=== PATIENT | male | born 1945 | race Caucasian/White ===

== ENCOUNTER 2017-01-25 07:53 | Day surgery (SDC) | payer MEDICARE, BC ==
[~2017-01-25 07:53] MED LIST: Lactated Ringers 1,000 ML IV SCH; Lidocaine 1%/Sod Bicarbonate in NS 8.4% 1 ML Syringe IV PRN; Sodium Chloride 0.9% 10 ML Syringe FLUSH PRN
--- NOTE | 2017-01-25 08:19 | PCM.PREANE ---
Preanesthetic Assessment - Anesthesia/Transfusion/Family Hx Anesthesia History: Prior Anesthesia Without Reaction Family History of Anesthesia Reaction: No Transfusion History: No Prior Transfusion(s) - Review of Systems General: No Symptoms Pulmonary: No Symptoms Cardiovascular: No Symptoms Gastrointestinal: No symptoms Neurological: No Symptoms Other: Reports: None - Physical Assessment NPO Status Date: 01/24/17 NPO Status Time: 22:30 Pulse: 79 O2 Sat by Pulse Oximetry: 96 Respiratory Rate: 20 Blood Pressure: 164/82 Temperature: 97.8 F Height: 5 ft 11 in Weight: 104 kg ASA Class: 2 Mental Status: Alert & Oriented x3 Airway Class: Mallampati = 3 Dentition: Reports: Normal Dentition Thyro-Mental Finger Breadths: 3 Mouth Opening Finger Breadths: 3 ROM/Head Extension: Full Lungs: Clear to auscultation, Normal respiratory effort Cardiovascular: Regular Rhythm, Irregular Rhythm - Imaging/EKG Impressions: 01/25/17 EKG reviewed by Husam Davis after read by DrWai 2 EKGs compared. - Allergies Allergies/Adverse Reactions: Allergies Allergy/AdvReac Type Severity Reaction Status Date / Time No Known Allergies Allergy Verified 01/25/17 08:36 - Blood Blood Available: No - Anesthesia Plan Pre-Op Medication Ordered: None - Acknowledgements Anesthesia Type Planned: MAC Pt an Appropriate Candidate for the Planned Anesthesia: Yes Alternatives and Risks of Anesthesia Discussed w Pt/Guardian: Yes Pt/Guardian Understands and Agrees with Anesthesia Plan: Yes PreAnesthesia Questionnaire HEENT History: Reports: Cataract Other HEENT History: ALLERGIC RHINITIS Cardiovascular History: Reports: Hypertension Other Cardiovascular History: HYPERLIPIDEMIA Respiratory History: Reports: Sleep apnea Gastrointestinal History: Reports: Diverticulosis, GERD Other Gastrointestinal History: Patient has never had a colonoscopy Other Genitourinary History: vasectomy Other Musculoskeletal History: NECK SURGERY Other Neuro History: Top of head pain nd dizziness with sinus Other Dermatologic History: LIPOMA - Past Surgical History HEENT Surgical History: Reports: Cataract surgery GI Surgical History: Reports: Colostomy Other GI Surgeries/Procedures: colostomy with reversal Other Musculoskeletal Surgeries/Procedures:: neck surgery with metal plates Dermatological Surgical History: Reports: Other (see below) (groin fatty area removed) - SUBSTANCE USE Smoking Status *Q: Former Smoker (quit 19 year ago) Tobacco Use Within Last Twelve Months: No Other Tobacco Use Within Last Twelve Months: quit 19 years ago Second Hand Smoke Exposure: No Days Per Week of Alcohol Use: 7 Number of Drinks Per Day: 2 Total Drinks Per Week: 14 Recreational Drug Use History: No - HOME MEDS Home Medications: Home Meds Lutein/Minerals/Vit A,C & E [Ocuvite] 1 tab PO DAILY 10/26/15 [History] Losartan/Hydrochlorothiazide [Losartan-HCTZ 50-12.5 MG] 50 mg PO DAILY 01/24/17 [History] Multivitamin [Multivitamins] 1 tab PO DAILY 01/24/17 [History] - CURRENT (IN HOUSE) MEDS Current Meds: Current Medications Lactated Ringer's (Ringers, Lactated) 1,000 mls @ 125 mls/hr IV ASDIRECTED MAYUR Stop: 01/25/17 23:00 Lidocaine/Sodium Bicarbonate (Buffered Lidocaine 1% In Ns 8.4%) 0.25 ml IV ONETIME PRN PRN Reason: Prior to IV Start Stop: 01/25/17 18:00 Sodium Chloride (Saline Flush) 10 ml FLUSH ASDIRECTED PRN PRN Reason: Keep Vein Open Stop: 01/25/17 18:00
[2017-01-25] MEDS ORDERED: fentaNYL 100 MCG/2 ML SDV ONE (09:12)
[2017-01-25] MEDS ORDERED: Propofol 200 MG/20 ML SDV ONE ×2 (09:12→10:49)
[2017-01-25] MEDS ORDERED: Lidocaine 1% 4 ML ONE (09:13)
[2017-01-25] MEDS ORDERED: Labetalol 100 MG/20 ML MDV ONE (10:35)
--- NOTE | 2017-01-25 10:49 | PCM.OPNOTE ---
- General Post-Op/Procedure Note Date of Surgery/Procedure: 01/25/17 Operative Procedure(s): colonoscopy with sigmid polypectomy Findings: 1. 1 cm sigmoid polyp pedunculated 2. sigmoid diverticulum 3. internal hemorrhoids Pre Op Diagnosis: history of rectal bleeding Post-Op Diagnosis: 1. 1 cm sigmoid polyp pedunculated. 2. sigmoid diverticulum. 3. internal hemorrhoids Anesthesia Technique: MAC, Moderate sedation Primary Surgeon: Lawrence Escobedo Pathology: sigmoid polyp Complications: None Condition: Good Free Text/Narrative:: After adequate IV sedation and analgesia was obtained. The patient was placed in the left lateral decubitus position for the procedure. Perianal inspection was unremarkable. Digital rectal examination revealed an unremarkable prostate. A lubricated colonoscope was inserted into the rectum and passed to the cecum without difficulty. The bowel preparation was excellent. The cecum, right colon , transverse, and descending colons were endoscopically normal with no mass lesions or inflammatory changes seen. There was a single diverticulum in the sigmoid. In the distal sigmoid there was a 1 cm, pedunculated polyp, which was removed with hot snare cautery. The specimen was retrieved. The base was cauterized. In the retroflexed view there were the 3 column hemorrhoids, which were nonbleeding. Air was removed, as I finished the procedure, which he tolerated well. Slubber Hand photographs taken for the patient and for the record.
--- NOTE | 2017-01-25 11:19 | PCM48HPAN ---
Post Anesthesia Note - EVALUATION WITHIN 48HRS OF ANESTHETIC Vital Signs in Normal Range: Yes Patient Participated in Evaluation: Yes Respiratory Function Stable: Yes Airway Patent: Yes Cardiovascular Function Stable: Yes Hydration Status Stable: Yes Pain Control Satisfactory: Yes Nausea and Vomiting Control Satisfactory: Yes Mental Status Recovered: Yes - COMMENTS/OBSERVATIONS Free Text/Narrative:: no anesthetic complications noted
[2017-01-25 17:51] VITALS: BP 164/82
== END 2017-01-25 11:22 | disposition home or self-care (01) ==
LOC: JD.SDS 07:53
PROVIDERS: ATTEND Surgery
PROC: 0DBN8ZX Excision of Sigmoid Colon, Via Natural or Artificial Opening Endoscopic, Diagnostic (ICD-10-PCS; principal; 2017-01-25)
DX: Z12.11 Encounter for screening for malignant neoplasm of colon (principal); D12.5 Benign neoplasm of sigmoid colon; K57.30 Diverticulosis of large intestine without perforation or abscess without bleeding; K64.8 Other hemorrhoids; M19.90 Unspecified osteoarthritis, unspecified site; I10 Essential (primary) hypertension; K21.9 Gastro-esophageal reflux disease without esophagitis; M54.10 Radiculopathy, site unspecified; I87.8 Other specified disorders of veins; Z79.899 Other long term (current) drug therapy; Z87.891 Personal history of nicotine dependence
CPT/HCPCS: 45385; 88305; 93005; J3010; J7120; 00810; J2704

== ENCOUNTER → 2017-01-27 | Day surgery (SDC) | payer MEDICARE, BC ==
[~2017-01-27] MED LIST changes: +Labetalol 100 MG/20 ML MDV ONE; +Lidocaine 1% 6 ML ONE; +Midazolam 1 MG/ML 2 ML SDV ONE; +Ondansetron 4 MG/2 ML SDV IVPUSH PRN; +Propofol 200 MG/20 ML SDV ONE; +fentaNYL 100 MCG/2 ML SDV IVPUSH PRN; +fentaNYL 100 MCG/2 ML SDV ONE
--- NOTE | 2017-01-27 09:22 | PCM.PREANE ---
Preanesthetic Assessment - Anesthesia/Transfusion/Family Hx Anesthesia History: Prior Anesthesia Without Reaction Family History of Anesthesia Reaction: No Transfusion History: No Prior Transfusion(s) Intubation History: Unknown - Review of Systems Pulmonary: No Symptoms (quit smoking 19 years ago./ History of JOHANNE and does not use his CPAP) Cardiovascular: No Symptoms Gastrointestinal: No symptoms (gerd history) Neurological: No Symptoms (History of vertigo), Tingling (right hand tingling noted due to c spine surgery.) Other: Reports: None, Sinus Problem (runny nose due to recent cold.) - Physical Assessment NPO Status Date: 01/26/17 NPO Status Time: 22:00 Pulse: 87 O2 Sat by Pulse Oximetry: 95 Respiratory Rate: 18 Blood Pressure: 155/73 Temperature: 36.4 C Vital Signs: Last Vital Signs Temp 36.4 C 01/27/17 08:45 Pulse 87 01/27/17 08:45 Resp 18 01/27/17 08:45 BP 155/73 H 01/27/17 08:45 Pulse Ox 95 01/27/17 08:45 Height: 1.8 m Weight: 106.141 kg ASA Class: 2 Mental Status: Alert & Oriented x3 Airway Class: Mallampati = 2 Dentition: Reports: Normal Dentition, [place](s), Caries Thyro-Mental Finger Breadths: 3 Mouth Opening Finger Breadths: 3 ROM/Head Extension: Full Lungs: Clear to auscultation, Normal respiratory effort Cardiovascular: Regular Rate, Regular Rhythm - Lab Values: Labs of 01/03/17 reviewed and noted with values within normal range except BUN, and Cr. - Imaging/EKG Impressions: EKG: SR= 69, PAC's noted, Prolonged QT interval noted, abnormal Rwave progression, No changes noted when compared to prior EKG. - Allergies Allergies/Adverse Reactions: Allergies Allergy/AdvReac Type Severity Reaction Status Date / Time No Known Allergies Allergy Verified 01/27/17 09:01 - Anesthesia Plan Pre-Op Medication Ordered: None - Acknowledgements Anesthesia Type Planned: MAC Pt an Appropriate Candidate for the Planned Anesthesia: Yes Alternatives and Risks of Anesthesia Discussed w Pt/Guardian: Yes Pt/Guardian Understands and Agrees with Anesthesia Plan: Yes PreAnesthesia Questionnaire HEENT History: Reports: Allergic rhinitis, Cataract Other HEENT History: impacted cerumen, cataract Cardiovascular History: Reports: High cholesterol, Hypertension Other Cardiovascular History: venous stasis of lower extremity Respiratory History: Reports: Sleep apnea Other Respiratory History: CPAP at bedtime Gastrointestinal History: Reports: Diverticulosis, GERD, Hemorrhoids Other Gastrointestinal History: nausea/vomiting Other Genitourinary History: vasectomy 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 Musculoskeletal History: Reports: Arthritis Other Musculoskeletal History: radiculopathy of leg Other Neuro History: dizziness Psychiatric History: Reports: None Endocrine/Metabolic History: Reports: None Hematologic History: Reports: None Immunologic History: Reports: None Oncologic (Cancer) History: Reports: None Other Dermatologic History: eczema, lipoma - Past Surgical History Head Surgeries/Procedures: Reports: None HEENT Surgical History: Reports: Cataract surgery GI Surgical History: Reports: Colonoscopy, Colostomy, Other (see below) Other GI Surgeries/Procedures: sigmoid resection, expolratory laparotomy for bowel obstruction due to adhesions Male Surgical History: Reports: Vasectomy Other Musculoskeletal Surgeries/Procedures:: neck surgery with metal plates - SUBSTANCE USE Smoking Status *Q: Never Smoker Tobacco Use Within Last Twelve Months: No Other Tobacco Use Within Last Twelve Months: quit 19 years ago Second Hand Smoke Exposure: No Days Per Week of Alcohol Use: 7 Number of Drinks Per Day: 2 Total Drinks Per Week: 14 Recreational Drug Use History: No - HOME MEDS Home Medications: Home Meds Lutein/Minerals/Vit A,C & E [Ocuvite] 1 tab PO DAILY 10/26/15 [History] Losartan/Hydrochlorothiazide [Losartan-HCTZ 50-12.5 MG] 50 mg PO DAILY 01/24/17 [History] Multivitamin [Multivitamins] 1 tab PO DAILY 01/24/17 [History] - CURRENT (IN HOUSE) MEDS Current Meds: Current Medications Lactated Ringer's (Ringers, Lactated) 1,000 mls @ 125 mls/hr IV ASDIRECTED MAYUR Last Admin: 01/27/17 08:30 Dose: 125 mls/hr Lidocaine/Sodium Bicarbonate (Buffered Lidocaine 1% In Ns 8.4%) 0.25 ml IV ONETIME PRN PRN Reason: Prior to IV Start Last Admin: 01/27/17 08:29 Dose: 0.25 ml Sodium Chloride (Saline Flush) 10 ml FLUSH ASDIRECTED PRN PRN Reason: Keep Vein Open
--- NOTE | 2017-01-27 10:51 | PCM.OPNOTE ---
- General Post-Op/Procedure Note Date of Surgery/Procedure: 01/27/17 Operative Procedure(s): 3 column internal hemorrhoid banding Findings: 3 column internal hemorrhoids Pre Op Diagnosis: rectal bleeding from 3 column grade 2 hemorrhoids Post-Op Diagnosis: same Anesthesia Technique: MAC, Moderate sedation Primary Surgeon: Lawrence Escobedo Pathology: none EBL in mLs: 0 Complications: None Condition: Good Free Text/Narrative:: After adequate IV sedation and analgesia the patient was placed in the prone jackknife position with his buttocks taped. The perianal region was prepped with Betadine. The field was draped sterilely. An anal retractor was inserted into the anal canal after digitalization, exposing the left lateral column. Two rubber bands were fired in the rectal mucosa above the dentate line above the hemorrhoidal column. The right anterior and right posterior columns were managed in a similar fashion. The patient tolerated the procedure well and there were no complications.
--- NOTE | 2017-01-27 11:03 | PCM48HPAN ---
Post Anesthesia Note - EVALUATION WITHIN 48HRS OF ANESTHETIC Vital Signs in Normal Range: Yes Patient Participated in Evaluation: Yes Respiratory Function Stable: Yes Airway Patent: Yes Cardiovascular Function Stable: Yes Hydration Status Stable: Yes Pain Control Satisfactory: Yes Nausea and Vomiting Control Satisfactory: Yes Mental Status Recovered: Yes - COMMENTS/OBSERVATIONS Free Text/Narrative:: Patient awake, conversing and joking with staff. No c/o noted by patient, tolerated procedure well.
--- NOTE | 2017-01-27 11:31 | PCM48HPAN ---
Post Anesthesia Note - EVALUATION WITHIN 48HRS OF ANESTHETIC Vital Signs in Normal Range: Yes Patient Participated in Evaluation: Yes Respiratory Function Stable: Yes Airway Patent: Yes Cardiovascular Function Stable: Yes Hydration Status Stable: Yes Pain Control Satisfactory: Yes Nausea and Vomiting Control Satisfactory: Yes Mental Status Recovered: Yes - COMMENTS/OBSERVATIONS Free Text/Narrative:: Patient continues to deny any c/o chest pain, dizziness, or any complaints at this time. SPo2 monitor showed discrepancy with heart rate, and with noted unifocal PVC's noted during procedure, repeat EKG done. Repeat EKG reveals no changes from 01/26/17
[2017-01-27 11:56] VITALS: BP 143/72
== END | disposition home or self-care (01) ==
LOC: JD.SDS 08:24
PROVIDERS: ATTEND Surgery
PROC: 06BY0ZC Excision of Hemorrhoidal Plexus, Open Approach (ICD-10-PCS; principal; 2017-01-27)
DX: K64.1 Second degree hemorrhoids (principal)
CPT/HCPCS: 46221; 93005; J2250; J3010; J7120; 00902; J2704

== ENCOUNTER 2018-02-21 11:10 | Day surgery (SDC) | payer MEDICARE, BC ==
[~2018-02-21 11:10] MED LIST changes: -Labetalol 100 MG/20 ML MDV ONE; -Lidocaine 1% 6 ML ONE; +Lidocaine 1%/Sod Bicarbonate in NS 8.4% 1 ML Syringe IDERM PRN; -Lidocaine 1%/Sod Bicarbonate in NS 8.4% 1 ML Syringe IV PRN; -Midazolam 1 MG/ML 2 ML SDV ONE; -Ondansetron 4 MG/2 ML SDV IVPUSH PRN; -Propofol 200 MG/20 ML SDV ONE; -fentaNYL 100 MCG/2 ML SDV IVPUSH PRN; -fentaNYL 100 MCG/2 ML SDV ONE
[2018-02-21] MEDS ORDERED: Lidocaine 1% 4 ML ONE (11:48)
[2018-02-21] MEDS ORDERED: fentaNYL 100 MCG/2 ML SDV ONE (11:48)
[2018-02-21] MEDS ORDERED: Propofol 200 MG/20 ML SDV ONE (11:48)
--- NOTE | 2018-02-21 11:53 | PCM.PREANE ---
Preanesthetic Assessment - Anesthesia/Transfusion/Family Hx Anesthesia History: Prior Anesthesia Without Reaction Family History of Anesthesia Reaction: No Transfusion History: No Prior Transfusion(s) Intubation History: Unknown - Review of Systems General: No Symptoms Pulmonary: No Symptoms Cardiovascular: No Symptoms Gastrointestinal: No Symptoms Neurological: No Symptoms - Physical Assessment NPO Status Date: 02/20/18 NPO Status Time: 00:00 Pulse: 61 O2 Sat by Pulse Oximetry: 96 Respiratory Rate: 16 Blood Pressure: 140/69 Temperature: 36.4 C Vital Signs: Last Vital Signs Temp 36.4 C 02/21/18 11:15 Pulse 61 02/21/18 11:15 Resp 16 02/21/18 11:15 BP 140/69 02/21/18 11:15 Pulse Ox 96 02/21/18 11:15 Height: 1.78 m Weight: 101.7 kg ASA Class: 2 Mental Status: Alert & Oriented x3 Dentition: Reports: Missing Tooth/Teeth, Caries Thyro-Mental Finger Breadths: 2 Mouth Opening Finger Breadths: 2 ROM/Head Extension: Limited/Partial Lungs: Clear to Auscultation, Normal Respiratory Effort Cardiovascular: Regular Rate, Regular Rhythm - Allergies Allergies/Adverse Reactions: Allergies Allergy/AdvReac Type Severity Reaction Status Date / Time No Known Allergies Allergy Verified 02/20/18 14:28 - Blood Blood Available: No Product(s) Available: None - Anesthesia Plan Pre-Op Medication Ordered: Beta Steph Beta Steph: Metoprolol Med Last Dose Date: 02/21/18 Med Last Dose Time: 09:00 - Acknowledgements Anesthesia Type Planned: MAC Pt an Appropriate Candidate for the Planned Anesthesia: Yes Alternatives and Risks of Anesthesia Discussed w Pt/Guardian: Yes Pt/Guardian Understands and Agrees with Anesthesia Plan: Yes PreAnesthesia Questionnaire HEENT History: Reports: Allergic Rhinitis, Cataract Other HEENT History: impacted cerumen Cardiovascular History: Reports: High Cholesterol, Hypertension Other Cardiovascular History: claudication, peripheral edema, venous stasis Respiratory History: Reports: Sleep Apnea Other Respiratory History: CPAP at bedtime Gastrointestinal History: Reports: Diverticulosis, GERD, Hemorrhoids, Other ( See Below) Other Gastrointestinal History: dysphagia, intestional obstruction, nausea, vomiting Genitourinary History: Reports: Other (See Below) Other Genitourinary History: CKD III, renal artery stenosis 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 Musculoskeletal History: Reports: Arthritis, Back Pain, Chronic Other Musculoskeletal History: pirformis syndrome, lower extremity radicular syndrome Neurological History: Reports: None Other Neuro History: dizziness, brain hemangioma Psychiatric History: Reports: None Endocrine/Metabolic History: Reports: Other (See Below) Other Endocrine/Metabolic History: enlarged thyroid Hematologic History: Reports: None Immunologic History: Reports: None Oncologic (Cancer) History: Reports: None Dermatologic History: Reports: Eczema Other Dermatologic History: LIPOMA, rash - Past Surgical History Head Surgeries/Procedures: Reports: None HEENT Surgical History: Reports: Cataract Surgery Cardiovascular Surgical History: Reports: None Respiratory Surgical History: Reports: None GI Surgical History: Reports: Colostomy Other GI Surgeries/Procedures: colostomy with reversal Male Surgical History: Reports: Vasectomy Endocrine Surgical History: Reports: None Neurological Surgical History: Reports: Other (See Below) Other Neurological Surgeries/Procedures: neck surgery Other Musculoskeletal Surgeries/Procedures:: neck surgery with metal plates Oncologic Surgical History: Reports: None Dermatological Surgical History: Reports: Other (See Below) - SUBSTANCE USE Smoking Status *Q: Former Smoker Tobacco Use Within Last Twelve Months: No Second Hand Smoke Exposure: No Days Per Week of Alcohol Use: 7 Number of Drinks Per Day: 2 Total Drinks Per Week: 14 Recreational Drug Use History: No - HOME MEDS Home Medications: Home Meds Cholecalciferol (Vitamin D3) [Vitamin D3] 1,000 unit PO DAILY 02/20/18 [History] Famotidine [Pepcid] 20 mg PO DAILY 02/20/18 [History] Fish Oil/[place]-3 Fatty Acids [Fish Oil 1,000 MG] 1 gm PO DAILY 02/20/18 [History ] Folic Acid 0.8 mg PO DAILY 02/20/18 [History] Losartan [Cozaar] 100 mg PO DAILY 02/20/18 [History] Metoprolol Succinate 25 mg PO DAILY 02/20/18 [History] Triamcinolone Acetonide [Triamcinolone Acetonide 0.025%] 1 dose TOP BID [History] atorvaSTATin [Lipitor] 10 mg PO DAILY 02/20/18 [History] - CURRENT (IN HOUSE) MEDS Current Meds: Current Medications Lactated Ringer's (Ringers, Lactated) 1,000 mls @ 125 mls/hr IV ASDIRECTED MAYUR Stop: 02/21/18 23:00 Lidocaine/Sodium Bicarbonate (Buffered Lidocaine 1% In Ns 8.4%) 0.25 ml IDERM ONETIME PRN PRN Reason: Prior to IV Start Stop: 02/21/18 18:00 Sodium Chloride (Saline Flush) 10 ml FLUSH ASDIRECTED PRN PRN Reason: Keep Vein Open Stop: 02/21/18 18:00
[2018-02-21 13:02] VITALS: BP 120/54
--- NOTE | 2018-02-21 13:02 | PCM48HPAN ---
Post Anesthesia Note - EVALUATION WITHIN 48HRS OF ANESTHETIC Vital Signs in Normal Range: Yes Patient Participated in Evaluation: Yes Respiratory Function Stable: Yes Airway Patent: Yes Cardiovascular Function Stable: Yes Hydration Status Stable: Yes Pain Control Satisfactory: Yes Nausea and Vomiting Control Satisfactory: Yes Mental Status Recovered: Yes Pulse Rate: 65 SaO2: 93 Resp Rate: 16 Temperature: 36.3 C Blood Pressure: 120/54
--- NOTE | 2018-02-21 13:02 | PCM.OPNOTE ---
- General Post-Op/Procedure Note Date of Surgery/Procedure: 02/21/18 Operative Procedure(s): 1. Colonoscopy with cold forceps polypectomy 2. 2. Anoscopy followed by left lateral rubber band ligation of an internal hemorrhoid Findings: 1. Prominent left lateral hemorrhoidal column 2. Mild prostate hypertrophy 3. Several small colonic diverticuli 4. 2 diminutive colon polyps in the sigmoid and descending colon respectively Pre Op Diagnosis: 1. History of colon polyps. 2. Symptomatic internal hemorrhoids Post-Op Diagnosis: 1. Left lateral internal hemorrhoidal column. 2. Mild prostate hypertrophy. 3. Several small colonic diverticuli. 4. 2 diminutive colon polyps in the sigmoid and descending colon respectively Anesthesia Technique: MAC, Moderate Sedation Primary Surgeon: Lawrence Escobedo Pathology: 2 small polyps EBL in mLs: 0 Complications: None Condition: Good Free Text/Narrative:: After adequate IV sedation and analgesia was obtained with monitoring the patient was placed on his left side. Perianal inspection was grossly normal. On digital rectal examination I could appreciate a slightly enlarged prostate with no nodules or asymmetry. A lubricated colonoscope was then inserted into the rectum and advanced under direct vision with air insufflation as necessary to easily reach cecum. The bowel preparation was excellent. The cecum ascending colon and transverse colons were remarkable for a few scattered uncomplicated diverticuli. There were 2 small diverticuli in the descending colon. The sigmoid had one or 2 diverticuli. There was a diminutive polyp in the descending and sigmoid colons which were removed by cold forceps. The scope was then withdrawn to the rectum and in the retroflexed view I could see a slightly prominent left lateral hemorrhoidal column. Anoscopy was performed next and I fired a rubber band into the internal hemorrhoid column. Air was removed as I finished the procedure which he tolerated well. Photographs were taken for the patient and for the medical record.
== END 2018-02-21 13:20 | disposition home or self-care (01) ==
LOC: JD.SDS 11:10
PROVIDERS: ATTEND Surgery
DX: D12.4 Benign neoplasm of descending colon (principal); D12.5 Benign neoplasm of sigmoid colon; K64.8 Other hemorrhoids; K57.30 Diverticulosis of large intestine without perforation or abscess without bleeding; I12.9 Hypertensive chronic kidney disease with stage 1 through stage 4 chronic kidney disease, or unspecified chronic kidney disease; N18.3 Chronic kidney disease, stage 3 (moderate); N40.0 Benign prostatic hyperplasia without lower urinary tract symptoms; K21.9 Gastro-esophageal reflux disease without esophagitis; E78.5 Hyperlipidemia, unspecified; E78.00 Pure hypercholesterolemia, unspecified; Z87.891 Personal history of nicotine dependence
CPT/HCPCS: 45380; 46221; J2001; J3010; J7120; J2704

== ENCOUNTER 2020-05-06 11:59 | Emergency (ER) | payer MEDICARE, BC ==
[2020-05-06] MEDS ORDERED: Diltiazem 50 MG/10 ML SDV IVPUSH ONE (12:44)
--- NOTE | 2020-05-06 12:57 | CR ---
Chest: Portable view of the chest was obtained. Comparison: Prior chest x-ray of 10/09/19. Heart is enlarged. Slight parenchymal density is noted above the left diaphragm behind the heart either due to atelectasis or less likely minimal pneumonia. Slight atelectasis within the right lung base is seen. Central pulmonary vessels are minimally increased which appear stable. Prior cervical spine surgery is seen. Mild scattered degenerative change is noted within the thoracic spine. Impression: 1. Increased density behind the left heart most likely due to atelectasis or less likely due to minimal pneumonia. 2. Mild right basilar atelectasis is noted. 3. Cardiomegaly with minimal chronic pulmonary vascular congestion. 4. Other findings believed to be incidental. Diagnostic code #3 This report was dictated in MDT
[2020-05-06] MEDS: Diltiazem 100 MG in Sodium Chloride 0.9% 100 ML IV SCH ×2 (13:05→17:51)
[2020-05-06] MEDS: Sodium Chloride 0.9% 10 ML Syringe FLUSH PRN ×2 (13:07→14:20)
[2020-05-06] MEDS ORDERED: Aspirin 81 MG Tab.Chew PO ONE (13:47)
[2020-05-06] MEDS ORDERED: Sodium Chloride 0.9% 10 ML Syringe FLUSH ONE (13:54)
[2020-05-06] MEDS ORDERED: Iopamidol 755 Mg/ML 100 ML Bottle IVPUSH ONE (13:54)
[2020-05-06] MEDS ORDERED: Sodium Chloride 0.9% 100 ML IV SCH (14:00)
[2020-05-06] MEDS ORDERED: Sodium Chloride 0.9% 1,000 ML IV SCH (14:00)
--- NOTE | 2020-05-06 14:01 | EDM.PDOC ---
ED HPI GENERAL MEDICAL PROBLEM - General Chief Complaint: Chest Pain Stated Complaint: CHEST PAIN Time Seen by Provider: 05/06/20 12:15 Source of Information: Reports: Patient, Family, Provider History Limitations: Reports: No Limitations - History of Present Illness INITIAL COMMENTS - FREE TEXT/NARRATIVE: The patient presents from the walk in clinic for right sided chest pain and shortness of breath. The patient was tested for COVID 19 on April 23. He found out he was positive for COVID 19 last week Monday. Someone from the state called him on Monday and he had no symptoms at that time so he was told he was clear. Yesterday he started having right sided chest pain, shortness of breath and fatigue. His says he slept most of the day. He went to the COVID clinic and he was in A-fib with RVR in the 150s and he was breathing hard. He was sent over here for further evaluation. His says that he has a history of A-fib but he has not been in it for awhile. He has never been on blood thinners. The patient has a history of hypertension. He does smoke. He has no history of COPD or asthma. He has no pain or swelling in his legs. He still has the pain in the right chest with shortness of breath. He has no abdominal pain, nausea, vomiting or diarrhea. He does have a slight cough. Onset: Gradual Duration: Day(s): Location: Reports: Chest Quality: Reports: Sharp Severity: Moderate Improves with: Reports: None Worsens with: Reports: None Associated Symptoms: Reports: Chest Pain, Cough, Fever/Chills, Shortness of Breath. Denies: Headaches, Nausea/Vomiting Right Chest Pain Score (Numeric/FACES): 9 - Related Data Allergies Allergy/AdvReac Type Severity Reaction Status Date / Time No Known Allergies Allergy Verified 05/06/20 12:24 Home Meds: Home Meds Cholecalciferol (Vitamin D3) [Vitamin D3] 1,000 unit PO DAILY 02/20/18 [History] Famotidine [Pepcid] 20 mg PO DAILY 02/20/18 [History] Fish Oil/Avilla-3 Fatty Acids [Fish Oil 1,000 MG] 1 gm PO DAILY 02/20/18 [History] Folic Acid 0.8 mg PO DAILY 02/20/18 [History] Losartan [Cozaar] 100 mg PO DAILY 02/20/18 [History] Metoprolol Succinate 25 mg PO DAILY 02/20/18 [History] Triamcinolone Acetonide [Triamcinolone Acetonide 0.025%] 1 dose TOP BID 02/20/18 [History] atorvaSTATin [Lipitor] 10 mg PO DAILY 02/20/18 [History] Past Medical History HEENT History: Reports: Allergic Rhinitis, Cataract Other HEENT History: impacted cerumen Cardiovascular History: Reports: Afib, High Cholesterol, Hypertension Other Cardiovascular History: claudication, peripheral edema, venous stasis Respiratory History: Reports: Sleep Apnea Other Respiratory History: CPAP at bedtime Gastrointestinal History: Reports: Diverticulosis, GERD, Hemorrhoids, Other (See Below) Other Gastrointestinal History: dysphagia, intestional obstruction, nausea, vomiting Genitourinary History: Reports: Other (See Below) Other Genitourinary History: CKD III, renal artery stenosis TONGUE BINDER History: Reports: None Musculoskeletal History: Reports: Arthritis, Back Pain, Chronic Other Musculoskeletal History: pirformis syndrome, lower extremity radicular syndrome Neurological History: Reports: None Other Neuro History: dizziness, brain hemangioma Psychiatric History: Reports: None Endocrine/Metabolic History: Reports: Other (See Below) Other Endocrine/Metabolic History: enlarged thyroid Hematologic History: Reports: None Immunologic History: Reports: None Oncologic (Cancer) History: Reports: None Dermatologic History: Reports: Eczema Other Dermatologic History: LIPOMA, rash - Past Surgical History Head Surgeries/Procedures: Reports: None HEENT Surgical History: Reports: Cataract Surgery Cardiovascular Surgical History: Reports: None Respiratory Surgical History: Reports: None GI Surgical History: Reports: Colostomy Other GI Surgeries/Procedures: colostomy with reversal Male Surgical History: Reports: Vasectomy Endocrine Surgical History: Reports: None Neurological Surgical History: Reports: Other (See Below) Other Neurological Surgeries/Procedures: neck surgery Other Musculoskeletal Surgeries/Procedures:: neck surgery with metal plates Oncologic Surgical History: Reports: None Dermatological Surgical History: Reports: Other (See Below) Social & Family History - Tobacco Use Smoking Status *Q: Former Smoker Used Tobacco, but Quit: Yes Month/Year Tobacco Last Used: 1996 Second Hand Smoke Exposure: No - Caffeine Use Caffeine Use: Reports: None - Recreational Drug Use Recreational Drug Use: No - Living Situation & Occupation Living situation: Reports: Occupation: Employed ED ROS GENERAL - Review of Systems Review Of Systems: See Below Constitutional: Reports: Malaise, Weakness, Fatigue. Denies: Fever, Chills HEENT: Reports: No Symptoms Respiratory: Reports: Shortness of Breath, Cough Cardiovascular: Reports: Chest Pain, Palpitations Endocrine: Reports: Fatigue GI/Abdominal: Reports: No Symptoms : Reports: No Symptoms Musculoskeletal: Reports: No Symptoms ED EXAM, GENERAL - Physical Exam Exam: See Below Exam Limited By: No Limitations General Appearance: Alert, No Apparent Distress Ears: Normal External Exam Nose: Normal Inspection Head: Atraumatic, Normocephalic Neck: Normal Inspection Respiratory/Chest: No Respiratory Distress, Decreased Breath Sounds Cardiovascular: No Edema, No Murmur, Tachycardia, Irregularly Irregular GI/Abdominal: Soft, Non-Tender, No Organomegaly, No Mass Back Exam: Normal Inspection Extremities: Normal Inspection EKG INTERPRETATION EKG Date: 05/06/20 Time: 12:14 Rhythm: A-Fib Rate (Beats/Min): 137 Woodman: Normal QRS: RBBB ST-T: Normal QT: Normal Course - Vital Signs Last Recorded V/S: Last Vital Signs Temp 97.4 F 05/06/20 12:07 Pulse 127 H 05/06/20 12:07 Resp 20 05/06/20 12:07 BP 129/86 05/06/20 12:07 Pulse Ox 95 05/06/20 12:07 - Orders/Labs/Meds Orders: Active Orders 24 hr Category Date Time Status Cardiac Monitoring [RC] . DIRECTED Care 05/06/20 12:19 Active EKG Documentation Completion [RC] STAT Care 05/06/20 12:20 Active Oxygen Therapy [RC] PRN Care 05/06/20 12:20 Active Peripheral IV Care [RC] . DIRECTED Care 05/06/20 12:20 Active CULTURE BLOOD [BC] Stat Lab 05/06/20 15:00 Received CULTURE BLOOD [BC] Stat Lab 05/06/20 15:15 Received Diltiazem [Cardizem] 100 mg Med 05/06/20 12:45 Active Sodium Chloride 0.9% [Normal Saline] 100 ml IV TITRATE Heparin Sodium/D5W [Heparin 25,000 Units in D5W 500 ML] Med 05/06/20 15:00 Active 25,000 units in 500 ml IV TITRATE Sodium Chloride 0.9% [Normal Saline] 1,000 ml Med 05/06/20 14:00 Active IV ASDIRECTED Sodium Chloride 0.9% [Normal Saline] 100 ml Med 05/06/20 14:00 Active IV ASDIRECTED Sodium Chloride 0.9% [Saline Flush] Med 05/06/20 12:19 Active 10 ml FLUSH ASDIRECTED PRN Blood Culture x2 Reflex Set [OM.PC] Stat Ot 05/06/20 13:48 Ordered Peripheral IV Insertion Adult [OM.PC] Stat Ot 05/06/20 12:19 Ordered Medication Orders Diltiazem HCl 100 mg/ Sodium (Chloride) 100 mls @ 10 mls/hr IV TITRATE MAYUR; Protocol Last Titration: 05/06/20 14:24 Dose: 20 mg/hr, 20 mls/hr Documented by: Admin: 05/06/20 13:05 Dose: 10 mg/hr, 10 mls/hr Documented by: JEREMY Sodium Chloride (Normal Saline) 1,000 mls @ 150 mls/hr IV ASDIRECTED MAYUR Last Admin: 05/06/20 15:51 Dose: 150 mls/hr Documented by: JEREMY Sodium Chloride (Normal Saline) 100 mls @ 60 mls/hr IV ASDIRECTED MAYUR Last Admin: 05/06/20 14:20 Dose: 60 mls/hr Documented by: JOSE DE JESUS Heparin Sodium/Dextrose (Heparin 25,000 Units In D5w 500 Ml) 25,000 units in 500 mls @ 21.137 mls/hr IV TITRATE MAYUR; Protocol Last Admin: 05/06/20 15:47 Dose: 10 units/kg/hr, 21.137 mls/hr Documented by: JEREMY Cosigned by: [id number] Sodium Chloride (Saline Flush) 10 ml FLUSH ASDIRECTED PRN PRN Reason: Keep Vein Open Last Admin: 05/06/20 14:20 Dose: 10 ml Documented by: JOSE DE JESUS Admin: 05/06/20 13:07 Dose: 10 ml Documented by: JEREMY Labs: Laboratory Tests 05/06/20 05/06/20 05/06/20 Range/Units 12:25 12:25 12:25 WBC 10.83 H (4.23-9.07) K/mm3 RBC 4.73 (4.63-6.08) M/mm3 Hgb 15.0 (13.7-17.5) gm/dl Hct 43.8 (40.1-51.0) % MCV 92.6 H D (79.0-92.2) fl MCH 31.7 (25.7-32.2) pg MCHC 34.2 (32.2-35.5) g/dl RDW Std Deviation 44.4 H (35.1-43.9) fL Plt Count 358 H D (163-337) K/mm3 MPV 9.1 L (9.4-12.3) fl Neut % (Auto) 75.0 H (34.0-67.9) % Lymph % (Auto) 9.1 L (21.8-53.1) % Taylor % (Auto) 14.0 H (5.3-12.2) % Eos % (Auto) 0.5 L (0.8-7.0) Baso % (Auto) 0.8 (0.1-1.2) % Neut # (Auto) 8.12 H (1.78-5.38) K/mm3 Lymph # (Auto) 0.99 L (1.32-3.57) K/mm3 Taylor # (Auto) 1.52 H (0.30-0.82) K/mm3 Eos # (Auto) 0.05 (0.04-0.54) K/mm3 Baso # (Auto) 0.09 H (0.01-0.08) K/mm3 Manual Slide Review Abnormal smear APTT (22-31) SECONDS D-Dimer, Quantitative (0.19-0.50) mg/L Sodium 136 (136-145) mEq/L Potassium 3.7 (3.5-5.1) mEq/L Chloride 101 (98-107) mEq/L Carbon Dioxide 23 (21-32) mEq/L Anion Gap 15.7 H (5-15) BUN 26 H (7-18) mg/dL Creatinine 1.5 H (0.7-1.3) mg/dL Est Cr Clr Drug Dosing 47.41 mL/min Estimated GFR (MDRD) 46 (>60) mL/min BUN/Creatinine Ratio 17.3 (14-18) Glucose 163 H (83-115) mg/dL Lactic Acid (0.4-2.0) mmol/L Calcium 9.1 (8.5-10.1) mg/dL Ferritin 659 H (26-388) ng/ml Total Bilirubin 1.0 (0.2-1.0) mg/dL AST 34 (15-37) U/L ALT 52 (16-63) U/L Alkaline Phosphatase 70 (46-116) U/L Lactate Dehydrogenase 277 H (85-227) U/L Creatine Kinase 60 (39-308) U/L Troponin I 0.266 H* (0.00-0.056) ng/mL C-Reactive Protein 6.6 H* (<1.0) mg/dL Total Protein 7.4 (6.4-8.2) g/dl Albumin 2.7 L (3.4-5.0) g/dl Globulin 4.7 gm/dL Albumin/Globulin Ratio 0.6 L (1-2) SARS Virus RNA (PCR) (NEGATIVE) 05/06/20 05/06/20 05/06/20 Range/Units 12:25 12:25 12:25 WBC (4.23-9.07) K/mm3 RBC (4.63-6.08) M/mm3 Hgb (13.7-17.5) gm/dl Hct (40.1-51.0) % MCV (79.0-92.2) fl MCH (25.7-32.2) pg MCHC (32.2-35.5) g/dl RDW Std Deviation (35.1-43.9) fL Plt Count (163-337) K/mm3 MPV (9.4-12.3) fl Neut % (Auto) (34.0-67.9) % Lymph % (Auto) (21.8-53.1) % Taylor % (Auto) (5.3-12.2) % Eos % (Auto) (0.8-7.0) Baso % (Auto) (0.1-1.2) % Neut # (Auto) (1.78-5.38) K/mm3 Lymph # (Auto) (1.32-3.57) K/mm3 Taylor # (Auto) (0.30-0.82) K/mm3 Eos # (Auto) (0.04-0.54) K/mm3 Baso # (Auto) (0.01-0.08) K/mm3 Manual Slide Review APTT 25 (22-31) SECONDS D-Dimer, Quantitative 6.45 H (0.19-0.50) mg/L Sodium (136-145) mEq/L Potassium (3.5-5.1) mEq/L Chloride (98-107) mEq/L Carbon Dioxide (21-32) mEq/L Anion Gap (5-15) BUN (7-18) mg/dL Creatinine (0.7-1.3) mg/dL Est Cr Clr Drug Dosing mL/min Estimated GFR (MDRD) (>60) mL/min BUN/Creatinine Ratio (14-18) Glucose (83-115) mg/dL Lactic Acid 1.2 (0.4-2.0) mmol/L Calcium (8.5-10.1) mg/dL Ferritin (26-388) ng/ml Total Bilirubin (0.2-1.0) mg/dL AST (15-37) U/L ALT (16-63) U/L Alkaline Phosphatase (46-116) U/L Lactate Dehydrogenase (85-227) U/L Creatine Kinase (39-308) U/L Troponin I (0.00-0.056) ng/mL C-Reactive Protein (<1.0) mg/dL Total Protein (6.4-8.2) g/dl Albumin (3.4-5.0) g/dl Globulin gm/dL Albumin/Globulin Ratio (1-2) SARS Virus RNA (PCR) (NEGATIVE) 05/06/20 Range/Units 12:43 WBC (4.23-9.07) K/mm3 RBC (4.63-6.08) M/mm3 Hgb (13.7-17.5) gm/dl Hct (40.1-51.0) % MCV (79.0-92.2) fl MCH (25.7-32.2) pg MCHC (32.2-35.5) g/dl RDW Std Deviation (35.1-43.9) fL Plt Count (163-337) K/mm3 MPV (9.4-12.3) fl Neut % (Auto) (34.0-67.9) % Lymph % (Auto) (21.8-53.1) % Taylor % (Auto) (5.3-12.2) % Eos % (Auto) (0.8-7.0) Baso % (Auto) (0.1-1.2) % Neut # (Auto) (1.78-5.38) K/mm3 Lymph # (Auto) (1.32-3.57) K/mm3 Taylor # (Auto) (0.30-0.82) K/mm3 Eos # (Auto) (0.04-0.54) K/mm3 Baso # (Auto) (0.01-0.08) K/mm3 Manual Slide Review APTT (22-31) SECONDS D-Dimer, Quantitative (0.19-0.50) mg/L Sodium (136-145) mEq/L Potassium (3.5-5.1) mEq/L Chloride (98-107) mEq/L Carbon Dioxide (21-32) mEq/L Anion Gap (5-15) BUN (7-18) mg/dL Creatinine (0.7-1.3) mg/dL Est Cr Clr Drug Dosing mL/min Estimated GFR (MDRD) (>60) mL/min BUN/Creatinine Ratio (14-18) Glucose (83-115) mg/dL Lactic Acid (0.4-2.0) mmol/L Calcium (8.5-10.1) mg/dL Ferritin (26-388) ng/ml Total Bilirubin (0.2-1.0) mg/dL AST (15-37) U/L ALT (16-63) U/L Alkaline Phosphatase (46-116) U/L Lactate Dehydrogenase (85-227) U/L Creatine Kinase (39-308) U/L Troponin I (0.00-0.056) ng/mL C-Reactive Protein (<1.0) mg/dL Total Protein (6.4-8.2) g/dl Albumin (3.4-5.0) g/dl Globulin gm/dL Albumin/Globulin Ratio (1-2) SARS Virus RNA (PCR) Positive H (NEGATIVE) Meds: Medications Generic Name Dose Route Start Last Admin Trade Name Freq PRN Reason Stop Dose Admin Diltiazem HCl 100 mg/ Sodium 100 mls @ 10 mls/hr 05/06/20 12:45 08/05/20 14:24 Chloride IV 20 mg/hr TITRATE MAYUR 20 mls/hr Titration Protocol 10 MG/HR Sodium Chloride 1,000 mls @ 150 mls/hr 05/06/20 14:00 05/06/20 15:51 Normal Saline IV 150 mls/hr ASDIRECTED MAYUR Administration Sodium Chloride 100 mls @ 60 mls/hr 05/06/20 14:00 05/06/20 14:20 Normal Saline IV 60 mls/hr ASDIRECTED MAYUR Administration Heparin Sodium/Dextrose 25,000 units in 500 mls @ 21.137 mls/hr 05/06/20 15:00 05/06/20 15:47 Heparin 25,000 Units In D5w 500 Ml IV 10 units/kg/hr TITRATE MAYUR 21.137 mls/hr Administration Protocol 10 UNITS/KG/HR Sodium Chloride 10 ml 05/06/20 12:19 05/06/20 14:20 Saline Flush FLUSH 10 ml ASDIRECTED PRN Administration Keep Vein Open Discontinued Medications Generic Name Dose Route Start Last Admin Trade Name Freq PRN Reason Stop Dose Admin Aspirin 324 mg 05/06/20 13:47 05/06/20 14:24 Aspirin PO 05/06/20 13:48 324 mg ONETIME ONE Administration Diltiazem HCl 10 mg 05/06/20 12:44 05/06/20 13:02 Cardizem IVPUSH 05/06/20 12:45 10 mg ONETIME ONE Administration Heparin Sodium (Porcine) 5,000 units 05/06/20 14:47 05/06/20 15:47 Heparin Sodium IVPUSH 05/06/20 14:48 5,000 units .BOLUS ONE Administration Iopamidol 100 ml 05/06/20 13:54 05/06/20 14:20 Isovue-370 (76%) IVPUSH 05/06/20 13:55 100 ml ONETIME ONE Administration Sodium Chloride 10 ml 05/06/20 13:54 05/06/20 15:51 Saline Flush FLUSH 05/06/20 13:55 10 ml ONETIME ONE Administration - Re-Assessments/Exams Free Text/Narrative Re-Assessment/Exam: 05/06/20 14:04 I ordered oxygen PRN, IV saline lock, CXR, labs, EKG, cardizem bolus of 10mg and drip at 10mg/hr. I will also recheck him for COVID 19. His EKG shows atrial fibrillation with RVR at 137. His CXR shows increased density behind the left heart most likely due to atelectasis or less likely due to minimal pneumonia. Mild right basilar atelectasis is noted. Cardiomegaly with minimal chronic pulmonary vascular congestion. Other findings believed to be incidental. His WBC was elevated at 10.83. His D-dimer was very elevated at 6.45. I have ordered a CT angio of his chest. I will also order NS at 150ml/hr due to his GFR being 45. His anion gap is elevated at 15.7. His BUN was elevated at 26. His creatinine is elevated at 1.5. His glucose is elevated at 163. His ferritin is elevated at 659. His LDH is elevated at 277. His troponin is elevated at 0.666. His CRP is elevated at 6.6. I have also ordered blood cultures, lactic acid and aspirin. 05/06/20 14:[address] of his chest shows pulmonary emboli. Dependent atelectasis. Findings suspicious for interstitial fibrosis within both lung bases. I have ordered a heparin bolus and drip. I am waiting on more results. 05/06/20 15:51 The COVID 19 is positive. He has COVID 19, bilateral PEs, elevated troponin and A-fib with RVR. I feel he would be better served in [place]. I called [facility] in [place] and I am waiting to hear back. 05/06/20 16:21 They called me back and I talked with Dr Gunter and he accepted the patient. Departure - Departure Time of Disposition: 16:30 Disposition: DC/Tfer to [facility] Reason for Transfer *Q: Other Condition: Serious Clinical Impression: COVID-19, Non-STEMI (non-ST elevated myocardial infarction), Atrial fibrill ation with RVR Pulmonary embolism Qualifiers: Pulmonary embolism type: other Chronicity: acute Acute cor pulmonale presence: without acute cor pulmonale Qualified Code(s): I26.99 - Other pulmonary embolism without acute cor pulmonale Referrals: Ele Gu PA-C [Primary Care Provider] - Forms: ED Department Discharge Sepsis Event Note (ED) - Evaluation Sepsis Screening Result: No Definite Risk - Focused Exam Vital Signs: Vital Signs Temp Pulse Resp BP Pulse Ox 05/06/20 12:07 97.4 F 127 H 20 129/86 95 - My Orders Last 24 Hours: My Active Orders 05/06/20 12:19 Cardiac Monitoring [RC] . DIRECTED Sodium Chloride 0.9% [Saline Flush] 10 ml FLUSH ASDIRECTED PRN Peripheral IV Insertion Adult [OM.PC] Stat 05/06/20 12:20 EKG Documentation Completion [RC] STAT Oxygen Therapy [RC] PRN Peripheral IV Care [RC] . DIRECTED 05/06/20 12:45 Diltiazem [Cardizem] 100 mg Sodium Chloride 0.9% [Normal Saline] 100 ml IV TITRATE 05/06/20 13:48 Blood Culture x2 Reflex Set [OM.PC] Stat 05/06/20 14:00 Sodium Chloride 0.9% [Normal Saline] 1,000 ml IV ASDIRECTED Sodium Chloride 0.9% [Normal Saline] 100 ml IV ASDIRECTED 05/06/20 15:00 CULTURE BLOOD [BC] Stat Heparin Sodium/D5W [Heparin 25,000 Units in D5W 500 ML] 25,000 units in 500 ml IV TITRATE 05/06/20 15:15 CULTURE BLOOD [BC] Stat - Assessment/Plan Last 24 Hours: My Active Orders 05/06/20 12:19 Cardiac Monitoring [RC] . DIRECTED Sodium Chloride 0.9% [Saline Flush] 10 ml FLUSH ASDIRECTED PRN Peripheral IV Insertion Adult [OM.PC] Stat 05/06/20 12:20 EKG Documentation Completion [RC] STAT Oxygen Therapy [RC] PRN Peripheral IV Care [RC] . DIRECTED 05/06/20 12:45 Diltiazem [Cardizem] 100 mg Sodium Chloride 0.9% [Normal Saline] 100 ml IV TITRATE 05/06/20 13:48 Blood Culture x2 Reflex Set [OM.PC] Stat 05/06/20 14:00 Sodium Chloride 0.9% [Normal Saline] 1,000 ml IV ASDIRECTED Sodium Chloride 0.9% [Normal Saline] 100 ml IV ASDIRECTED 05/06/20 15:00 CULTURE BLOOD [BC] Stat Heparin Sodium/D5W [Heparin 25,000 Units in D5W 500 ML] 25,000 units in 500 ml IV TITRATE 05/06/20 15:15 CULTURE BLOOD [BC] Stat
--- NOTE | 2020-05-06 14:25 | CT ---
CT chest Technique: Multiple axial sections were obtained from above the lung apices inferiorly through the lung bases. Intravenous contrast was utilized. Study performed as a pulmonary injury protocol. Findings: Small filling defects compatible with pulmonary emboli are seen within the segmental branches of the left upper and left lower lung as well as within the right upper and right lower lung. Clot continues into the subsegmental branches within the both lower pulmonary arteries. Cysts are noted within both kidneys. Other visualized upper abdominal structures showed nothing acute. Coronary artery calcification is seen. No findings of right heart strain seen at this time. Heart is enlarged. Small mediastinal lymph nodes are seen and are more numerous than usually identified but most likely relates to old inflammatory change. Increased density within both posterior lung bases most likely representing dependent atelectasis as well as fibrosis. Interstitial fibrosis felt to be present within both lung bases. No definite acute parenchymal change is seen. Scattered degenerative endplate signal change is noted. Prior cervical spine surgery is noted. Impression: 1. Pulmonary emboli as described above. 2. Dependent atelectasis. 3. Findings suspicious for interstitial fibrosis within both lung bases. Diagnostic code #5 This report was dictated in MDT
[2020-05-06] MEDS ORDERED: Heparin Sodium 5,000 Units/ML Vial IVPUSH ONE (14:47)
[2020-05-06] MEDS ORDERED: Heparin Sodium/D5W 25,000 UNITS/500 ML BAG IV SCH (15:00)
[2020-05-06] MEDS ORDERED: Ondansetron 4 MG/2 ML SDV IVPUSH ONE (17:50)
[2020-05-06 18:27] VITALS: BP 137/87; PULSE 108
== END 2020-05-06 16:10 ==
LOC: JD.ED 11:59
DX: U07.1 COVID-19 (principal); I21.4 Non-ST elevation (NSTEMI) myocardial infarction; I48.91 Unspecified atrial fibrillation; I26.99 Other pulmonary embolism without acute cor pulmonale; I12.9 Hypertensive chronic kidney disease with stage 1 through stage 4 chronic kidney disease, or unspecified chronic kidney disease; N18.3 Chronic kidney disease, stage 3 (moderate); E78.00 Pure hypercholesterolemia, unspecified; K21.9 Gastro-esophageal reflux disease without esophagitis; Z87.891 Personal history of nicotine dependence; Z79.899 Other long term (current) drug therapy
CPT/HCPCS: 36415; 71045; 71275; 80053; 82550; 82728; 83605; 83615; 84484; 85025; 85379; 85730; 86140; 87040; 93005; 96365; 96366; 96368; 96375; 99285; A9270; J1644; J2405; J3490; J7030; J7050; Q9967; U0002; 93010